=== PATIENT | male | born 1980 | race Hispanic/Latino ===

== ENCOUNTER 2016-08-25 22:12 | Emergency (ER) | payer SELFPAY ==
[~2016-08-25] VITALS: Ht 172.7 cm; Wt 60.4 kg
[~2016-08-25 22:12] MED LIST: ANAPROX DS550 M1 PO
[2016-08-26] MEDS ORDERED: ANTIVERT25 MG PO (00:30)
[2016-08-26 00:39] VITALS: BP 114/70
== END 2016-08-26 00:42 | disposition home or self-care (01) ==
LOC: EME 22:12
DX: R42 Dizziness and giddiness (principal); Z91.19 Patient's noncompliance with other medical treatment and regimen
CPT/HCPCS: 99281; 99284